=== PATIENT | female | born 1980 | race American Indian/Alaskan Native ===

== ENCOUNTER → 2020-08-09 | Outpatient (CLI) | payer OTHER | END | disposition home or self-care (01) | LOC: NST 15:04 | PROVIDERS: ATTEND Obstetrics & Gynecology Maternal & Fetal Medicine | DX: Z34.83 Encounter for supervision of other normal pregnancy, third trimester (principal) ==

== ENCOUNTER 2020-08-29 17:31 | Inpatient (IN) | payer OTHER ==
[~2020-08-29] VITALS: Ht 165.1 cm; Wt 78.0 kg
[2020-08-29] MEDS ORDERED: PRENATAL TABLE1 EAC1 PO (17:50)
== END 2020-09-05 13:09 | disposition home or self-care (01) | DRG 833 ==
LOC: SURG-SUITE 17:31 → LDR 17:31 → OB/GYN 08-31 10:28 → SURG-SUITE 09-02 13:22
PROVIDERS: ADMIT Obstetrics & Gynecology Maternal & Fetal Medicine; ATTEND Obstetrics & Gynecology Maternal & Fetal Medicine
PROC: 4A1HXFZ Monitoring of Products of Conception, Cardiac Rhythm, External Approach (ICD-10-PCS; principal; 2020-08-29)
PROC: BY4GZZZ Ultrasonography of Third Trimester, Multiple Gestation (ICD-10-PCS; 2020-09-02)
DX: O60.03 Preterm labor without delivery, third trimester (principal); O30.033 Twin pregnancy, monochorionic/diamniotic, third trimester; Z3A.30 30 weeks gestation of pregnancy; Z20.822 Contact with and (suspected) exposure to COVID-19

== ENCOUNTER 2020-09-08 12:55 | Outpatient (CLI) | payer OTHER ==
[~2020-09-08 12:55] MED LIST: PRENATAL TABLE1 EAC1 PO
== END 2020-09-08 13:19 | disposition home or self-care (01) ==
LOC: NST 12:55
PROVIDERS: ATTEND Obstetrics & Gynecology Maternal & Fetal Medicine
DX: Z34.83 Encounter for supervision of other normal pregnancy, third trimester (principal)

== ENCOUNTER 2020-09-13 14:11 | Outpatient (CLI) | payer OTHER | END 2020-09-13 18:59 | disposition home or self-care (01) | LOC: NST 14:11 | PROVIDERS: ATTEND Obstetrics & Gynecology Maternal & Fetal Medicine | DX: Z34.83 Encounter for supervision of other normal pregnancy, third trimester (principal) ==

== ENCOUNTER 2020-09-22 16:42 | Outpatient (CLI) | payer OTHER | END 2020-09-22 17:43 | disposition home or self-care (01) | LOC: NST 16:42 | PROVIDERS: ATTEND Obstetrics & Gynecology Maternal & Fetal Medicine | DX: Z34.83 Encounter for supervision of other normal pregnancy, third trimester (principal) ==

== ENCOUNTER 2020-09-25 14:30 | Outpatient (CLI) | payer OTHER | END 2020-09-25 16:27 | disposition home or self-care (01) | LOC: NST 14:30 | PROVIDERS: ATTEND Obstetrics & Gynecology Maternal & Fetal Medicine | DX: Z34.83 Encounter for supervision of other normal pregnancy, third trimester (principal) ==

== ENCOUNTER 2020-09-29 13:47 | Outpatient (CLI) | payer OTHER | END 2020-09-29 14:57 | disposition home or self-care (01) | LOC: NST 13:47 | PROVIDERS: ATTEND Obstetrics & Gynecology Maternal & Fetal Medicine | DX: Z34.83 Encounter for supervision of other normal pregnancy, third trimester (principal) ==

== ENCOUNTER 2020-10-03 13:09 | Outpatient (CLI) | payer OTHER | END 2020-10-03 14:10 | disposition home or self-care (01) | LOC: NST 13:09 | PROVIDERS: ATTEND Obstetrics & Gynecology Maternal & Fetal Medicine | DX: Z34.83 Encounter for supervision of other normal pregnancy, third trimester (principal) ==

== ENCOUNTER 2020-10-05 07:15 | Inpatient (IN) | payer OTHER ==
[~2020-10-05] VITALS: Ht 165.1 cm; Wt 2757.0 kg
[2020-10-05] MEDS ORDERED: PRENA PO (10:58)
[2020-10-05] MEDS ORDERED: NASAL MIST126 ML (10:58)
[2020-10-05] MEDS ORDERED: PROCARD PO (10:58)
[2020-10-06] MEDS ORDERED: PRENATAL + DHA1 EAC1 (13:03)
[2020-10-06] MEDS ORDERED: NIFEDIPINE20 MG PO (13:03)
[2020-10-09] MEDS ORDERED: OXYC1TAB9 PO (07:56)
[2020-10-09] MEDS ORDERED: KETO10TA2 PO (07:56)
== END 2020-10-09 13:13 | disposition home or self-care (01) | DRG 786 ==
LOC: OB/GYN 10-06 07:15 → O/R 10-06 11:57 → SURG-SUITE 10-06 11:57
PROVIDERS: ADMIT Obstetrics & Gynecology Maternal & Fetal Medicine; ATTEND Obstetrics & Gynecology Maternal & Fetal Medicine
PROC: 4A1HXFZ Monitoring of Products of Conception, Cardiac Rhythm, External Approach (ICD-10-PCS; 2020-10-06)
PROC: 10D00Z1 Extraction of Products of Conception, Low, Open Approach (ICD-10-PCS; principal; 2020-10-06 07:30)
DX: O64.1XX1 Obstructed labor due to breech presentation, fetus 1 (principal); O60.14X2 Preterm labor third trimester with preterm delivery third trimester, fetus 2; O60.14X1 Preterm labor third trimester with preterm delivery third trimester, fetus 1; O30.033 Twin pregnancy, monochorionic/diamniotic, third trimester; O99.02 Anemia complicating childbirth; D64.9 Anemia, unspecified; Z37.2 Twins, both liveborn; Z3A.36 36 weeks gestation of pregnancy